=== PATIENT | female | born 1995 | race American Indian/Alaskan Native ===

== ENCOUNTER 2018-08-06 02:42 | Emergency (ER) | payer BC, MEDICAID ==
[2018-08-06] MEDS ORDERED: Metoclopramide 10 MG/2 ML SDV IVPUSH ONE (03:03)
[2018-08-06] MEDS ORDERED: HYDROmorphone 1 MG/ML Syringe IVPUSH ONE (03:04)
--- NOTE | 2018-08-06 03:05 | EDM.PDOC ---
ED HPI GENERAL MEDICAL PROBLEM - General Chief Complaint: Abdominal Pain Stated Complaint: BOTH SIDES HURT/HAVING TROUBLE BREATHING Time Seen by Provider: 08/06/18 02:59 Source of Information: Reports: Patient History Limitations: Reports: No Limitations - History of Present Illness INITIAL COMMENTS - FREE TEXT/NARRATIVE: 23-year-old female of [place] ancestry presents to the ED with bilateral abdominal pain that seems to be moving around currently it's mostly in the epigastrium. Pain awoke her from sleep. She did have associated nausea and vomiting 1 related to the intensity of the pain. was bilious. She doesn't believe she got into any bad food. She's had no fever or chills. No diarrhea so far. No previous abdominal surgery. Sure about possibility of . She is 6 para 5. Appears to be a strong colicky component to her pain at times as well but does radiate slightly up into the chest. Deep breathing makes the pain worse. She has no history of gallstones. Onset: Today Onset Date: 08/06/18 Onset Time: 01:00 Duration: Hour(s): Location: Reports: Abdomen (Mostly epigastrium but pain is felt across both upper quadrants of the abdomen. No radiation to the back.) Quality: Reports: Sharp, Stabbing, Other Severity: Moderate (Constant pressure in epigastrium with occasional colicky component to the pain) Improves with: Reports: None Worsens with: Reports: None ( and) Context: Reports: Other (Sisters here with left upper quadrant abdominal pain as well. She she has not vomited however.). Denies: Activity, Exercise, Lifting , Sick Contact, Trauma Associated Symptoms: Reports: Loss of Appetite, Nausea/Vomiting, Shortness of Breath. Denies: Confusion, Chest Pain, Cough, cough w sputum, Diaphoresis, Fever/Chills, Headaches, Malaise, Rash, Seizure (Vomiting times one of bilious material), Syncope (Sense of shortness breath is deep breathing makes the abdominal pain worse.) Treatments ACCESS SERVICES LIBRARIAN: Reports: Other (see below) (None.) Bilateral Upper Abdomen Pain Score (Numeric/FACES): 8 - Related Data Allergies Allergy/AdvReac Type Severity Reaction Status Date / Time Penicillins Allergy Hives Verified 08/06/18 02:50 Home Meds: Home Meds Ondansetron [Zofran] 4 mg BUCCAL Q6H PRN #5 tab 08/06/18 [Rx] Past Medical History : 6 Para: 5 - Past Surgical History Female Surgical History: Reports: D&C (After a miscarriage.) Social & Family History - Tobacco Use Smoking Status *Q: Current Every Day Smoker Years of Tobacco use: 5 Packs/Tins Daily: 0.1 - Recreational Drug Use Recreational Drug Use: No - Living Situation & Occupation Living situation: Reports: Single Occupation: Student ED ROS GENERAL - Review of Systems Review Of Systems: See Below Constitutional: Reports: Decreased Appetite. Denies: Fever, Chills, Malaise, Weakness, Fatigue, Weight Loss HEENT: Reports: No Symptoms Respiratory: Reports: Shortness of Breath. Denies: Wheezing, Pleuritic Chest Pain, Cough Cardiovascular: Denies: Chest Pain, Blood Pressure Problem, Claudication, Dyspnea on Exertion, Edema, Lightheadedness, Orthopnea Endocrine: Reports: No Symptoms GI/Abdominal: Reports: Abdominal Pain, Decreased Appetite, Nausea, Vomiting ( Vomiting times one of bilious material). Denies: Anorexia (See history of present illness), Constipation ( about 2 hours ago), Diarrhea, Difficulty Swallowing, Distension, Flatus, Hematemesis, Hematochezia, Melena : Reports: No Symptoms, Other (She is not sure when her last normal menstrual period was.) Musculoskeletal: Reports: No Symptoms Skin: Reports: No Symptoms Neurological: Reports: No Symptoms Psychiatric: Reports: No Symptoms Hematologic/Lymphatic: Reports: No Symptoms ED EXAM, GI/ABD - Physical Exam Exam: See Below Exam Limited By: No Limitations General Appearance: Alert, WD/WN, No Apparent Distress, Other (Vital signs show she is afebrile pulse of 71 with respect rate of 16. Sats are 100% room air) Eyes: Bilateral: Normal Appearance (No scleral icterus.) Throat/Mouth: Normal Inspection, Normal Lips, Normal Oropharynx, Other Head: Atraumatic, Normocephalic (Mouth is moist) Neck: Normal Inspection, Supple, Non-Tender, Full Range of Motion. No: Lymphadenopathy (L), Lymphadenopathy (R) Respiratory/Chest: No Respiratory Distress, Lungs Clear, Normal Breath Sounds, No Accessory Muscle Use Cardiovascular: Normal Peripheral Pulses, Regular Rate, Rhythm, No Edema, No Gallop, No Murmur, No Rub GI/Abdominal Exam: Normal Bowel Sounds, Soft, No Organomegaly, No Abnormal Bruit , No Mass, Pelvis Stable, Tender (This is mostly along the right costal margin in the midline and epigastrium.), Abnormal Bowel Sounds. No: Guarding, Rigid, Rebound Back Exam: Normal Inspection, Full Range of Motion. No: CVA Tenderness (L), CVA Tenderness (R) Extremities: Normal Inspection, Normal Range of Motion, Non-Tender, No Pedal Edema Neurological: Alert, Oriented, CN II-XII Intact, Normal Cognition Psychiatric: Normal Affect, Normal Mood Skin Exam: Warm, Dry, Intact, Normal Color, No Rash Course - Vital Signs Last Recorded V/S: Last Vital Signs Temp 36.2 C 08/06/18 02:50 Pulse 71 08/06/18 02:50 Resp 16 08/06/18 02:50 BP 127/86 08/06/18 02:50 Pulse Ox 100 08/06/18 02:50 - Orders/Labs/Meds Orders: Active Orders 24 hr Category Date Time Status Abdomen 1V Flat [CR] Stat Exams 08/06/18 04:12 Taken Labs: Laboratory Tests 08/06/18 08/06/18 08/06/18 Range/Units 03:10 03:10 03:10 WBC 5.88 (3.98-10.04) K/mm3 RBC 4.35 (3.98-5.22) M/mm3 Hgb 10.9 L (11.2-15.7) gm/L Hct 34.6 (34.1-44.9) % MCV 79.5 (79.4-94.8) fl MCH 25.1 L (25.6-32.2) pg MCHC 31.5 L (32.2-35.5) g/dl RDW Std Deviation 41.6 (36.4-46.3) fL Plt Count 272 (182-369) K/mm3 MPV 9.8 (9.4-12.3) fl Neutrophils % (Manual) 48 (40-60) % Band Neutrophils % 0 (0-10) % Lymphocytes % (Manual) 41 H (20-40) % Atypical Lymphs % 0 % Monocytes % (Manual) 9 (2-10) % Eosinophils % (Manual) 1 (0.7-5.8) % Basophils % (Manual) 1 (0.1-1.2) Platelet Estimate Adequate Plt Morphology Comment Normal Hypochromasia 1+ slight RBC Morph Comment Not Reportable Sodium 141 (136-145) mEq/L Potassium 3.7 (3.5-5.1) mEq/L Chloride 107 (98-107) mEq/L Carbon Dioxide 25 (21-32) mEq/L Anion Gap 12.7 (5-15) BUN 17 (7-18) mg/dL Creatinine 1.0 (0.55-1.02) mg/dL Est Cr Clr Drug Dosing 75.55 mL/min Estimated GFR (MDRD) > 60 (>60) mL/min BUN/Creatinine Ratio 17.0 (14-18) Glucose 101 (74-106) mg/dL Calcium 8.5 (8.5-10.1) mg/dL Total Bilirubin 0.3 (0.2-1.0) mg/dL AST 18 (15-37) U/L ALT 34 (14-59) U/L Alkaline Phosphatase 68 (46-116) U/L C-Reactive Protein 0.6 (<1.0) mg/dL Total Protein 7.3 (6.4-8.2) g/dl Albumin 3.6 (3.4-5.0) g/dl Globulin 3.7 gm/dL Albumin/Globulin Ratio 1.0 (1-2) Amylase 17 L (25-115) U/L HCG, Qual Negative (NEGATIVE) Urine Color (Yellow) Urine Appearance (Clear) Urine pH (5.0-8.0) Ur Specific [place] (1.005-1.030) Urine Protein (Negative) Urine Glucose (UA) (Negative) Urine Ketones (Negative) Urine Occult Blood (Negative) Urine Nitrite (Negative) Urine Bilirubin (Negative) Urine Urobilinogen (0.2-1.0) Ur Leukocyte Esterase (Negative) Urine RBC (0-5) /hpf Urine WBC (0-5) /hpf Ur Epithelial Cells (0-5) /hpf Urine Bacteria (FEW) /hpf Urine Mucus (FEW) /hpf 08/06/18 Range/Units 04:12 WBC (3.98-10.04) K/mm3 RBC (3.98-5.22) M/mm3 Hgb (11.2-15.7) gm/L Hct (34.1-44.9) % MCV (79.4-94.8) fl MCH (25.6-32.2) pg MCHC (32.2-35.5) g/dl RDW Std Deviation (36.4-46.3) fL Plt Count (182-369) K/mm3 MPV (9.4-12.3) fl Neutrophils % (Manual) (40-60) % Band Neutrophils % (0-10) % Lymphocytes % (Manual) (20-40) % Atypical Lymphs % % Monocytes % (Manual) (2-10) % Eosinophils % (Manual) (0.7-5.8) % Basophils % (Manual) (0.1-1.2) Platelet Estimate Plt Morphology Comment Hypochromasia RBC Morph Comment Sodium (136-145) mEq/L Potassium (3.5-5.1) mEq/L Chloride (98-107) mEq/L Carbon Dioxide (21-32) mEq/L Anion Gap (5-15) BUN (7-18) mg/dL Creatinine (0.55-1.02) mg/dL Est Cr Clr Drug Dosing mL/min Estimated GFR (MDRD) (>60) mL/min BUN/Creatinine Ratio (14-18) Glucose (74-106) mg/dL Calcium (8.5-10.1) mg/dL Total Bilirubin (0.2-1.0) mg/dL AST (15-37) U/L ALT (14-59) U/L Alkaline Phosphatase (46-116) U/L C-Reactive Protein (<1.0) mg/dL Total Protein (6.4-8.2) g/dl Albumin (3.4-5.0) g/dl Globulin gm/dL Albumin/Globulin Ratio (1-2) Amylase (25-115) U/L HCG, Qual (NEGATIVE) Urine Color Yellow (Yellow) Urine Appearance Cloudy H (Clear) Urine pH 7.0 (5.0-8.0) Ur Specific [place] 1.025 (1.005-1.030) Urine Protein 1+ H (Negative) Urine Glucose (UA) Negative (Negative) Urine Ketones Trace H (Negative) Urine Occult Blood Negative (Negative) Urine Nitrite Positive H (Negative) Urine Bilirubin Negative (Negative) Urine Urobilinogen 1.0 (0.2-1.0) Ur Leukocyte Esterase Negative (Negative) Urine RBC 0-5 (0-5) /hpf Urine WBC 0-5 (0-5) /hpf Ur Epithelial Cells 0-5 (0-5) /hpf Urine Bacteria Many H (FEW) /hpf Urine Mucus Few (FEW) /hpf Meds: Medications Discontinued Medications Generic Name Dose Route Start Last Admin Trade Name López PRN Reason Stop Dose Admin Hydromorphone HCl 0.5 mg 08/06/18 03:04 08/06/18 03:13 Dilaudid IVPUSH 08/06/18 03:05 0.5 mg ONETIME ONE Administration Sodium Chloride 1,000 mls @ 500 mls/hr 08/06/18 03:15 08/06/18 03:12 Normal Saline IV 500 mls/hr ASDIRECTED NINA Administration Ketorolac Tromethamine 30 mg 08/06/18 05:00 08/06/18 05:06 Toradol IVPUSH 30 mg ONETIME NINA Administration Magnesium Citrate 180 ml 08/06/18 04:56 08/06/18 05:06 Citrate Of Magnesia PO 08/06/18 04:57 180 ml ONETIME ONE Administration Metoclopramide HCl 7.5 mg 08/06/18 03:03 08/06/18 03:12 Reglan IVPUSH 08/06/18 03:04 7.5 mg ONETIME ONE Administration - Radiology Interpretation Free Text/Narrative:: 23-year-old female presents to the ED with acute onset of diffuse upper abdominal pain under the costal margins bilaterally. Pain currently is mostly in the epigastrium. Associated nausea and vomiting 1 due to the intensity of the pain. Pain woke her from sleep about 2 hours ago. She last ate about 1830 hrs. last night. Examination shows bowel sounds to be normal. Pain in the epigastrium on palpation along the right costal margin with no true positive Caldera sign. Benign abdomen otherwise. No previous abdominal surgery. Of note her sister is in the department the same time with left upper quadrant abdominal pain and nausea with no vomiting or diarrhea. Plan normal saline at 500 mils per hour. Given Dilaudid 0.5 mg IV for pain relief and Reglan 7.5 mg IV. Labs will include a beta hCG CBC CMP and amylase. Will hold off on KUB of the abdomen until we know for sure her status. - Re-Assessments/Exams Free Text/Narrative Re-Assessment/Exam: 08/06/18 03:41 bedside ultrasound performed by me does not reveal any evidence of gallstones. Gallbladder was well well visualized. 08/06/18 04:14 White count is 5.88 with 48% neutrophils and 41% lymphocytes suggesting a viral infection. Hemoglobin is low at 10.9 with hematocrit of 34.6. MCV is 79.5 suggesting mild iron deficiency. Platelet count is normal 272, 000. Sodium 141 with a potassium of 3.7. Chloride 107 with a bicarbonate 25. Anion gap is 12.7. BUN is 17 with a creatinine of 1.0. GFR is greater than 60. Glucose is 101. Calcium 8.5 with a normal bilirubin 0.3. Liver function is otherwise normal. C-reactive protein is 0.6. Total protein is 7.3 with an albumin fraction 3.6. Amylase is 17 hCG qualitative serum was negative. Labs do not shed any light on etiology of abdominal pain appears to be viral gastroenteritis. She will now have a KUB performed. 08/06/18 04:57 KUB reveals a stool plug in the right upper: Near the hepatic flexure. There is a large amount of air distending small bowel and colon due to the plug. She will therefore be treated with magnesium citrate 6 ounces by mouth with 5-6 ounces of juice once. Departure - Departure Time of Disposition: 04:57 Disposition: Home, Self-Care 01 Condition: Fair Clinical Impression: Constipation by delayed colonic transit Abdominal pain Qualifiers: Abdominal location: epigastric Qualified Code(s): R10.13 - Epigastric pain - Discharge Information *PRESCRIPTION DRUG MONITORING PROGRAM REVIEWED*: Not Applicable *COPY OF PRESCRIPTION DRUG MONITORING REPORT IN PATIENT BRIANNA: Not Applicable Prescriptions: Ondansetron [Zofran] 4 mg BUCCAL Q6H PRN #5 tab PRN Reason: nausea or vomiting Instructions: Abdominal Pain, Adult, [id number] Referrals: PCP,None [Primary Care Provider] - Forms: ED Department Discharge Additional Instructions: Evaluation the emergency room this morning in regards to acute onset of bilateral upper abdominal pain and then mostly epigastric pressure discomfort that did cause unit of nausea and vomiting 1. No associated fever chills. Lab work proved to be completely normal. This includes a negative test. X- ray of the abdomen shows a stool bolus in the right upper "quadrant of the colon which is causing backup of air through your small bowel and parts of your large bowel which are causing your pain. Treatment was magnesium citrate 6 ounces given in the ED. This will take 1-2 hours to work and make her bowels work about 3 or 4 times this morning and get rid of the pain. You were treated with intravenous fluids while in the ED as well as pain medication and intravenous medicine for nausea relief. If nausea persists then you can fill prescription for Zofran 4 mg that can be taken under the tongue every 6 hours as needed for relief of nausea or vomiting. I suspect she will need this once her bowel was cleansed. - My Orders Last 24 Hours: My Active Orders 08/06/18 04:12 Abdomen 1V Flat [CR] Stat - Assessment/Plan Last 24 Hours: My Active Orders 08/06/18 04:12 Abdomen 1V Flat [CR] Stat
[2018-08-06] MEDS ORDERED: Sodium Chloride 0.9% 1,000 ML IV SCH (03:15)
[2018-08-06] MEDS ORDERED: Magnesium Citrate Solution 296 ML Bottle PO ONE (04:56)
[2018-08-06] MEDS ORDERED: Ketorolac 30 MG/ML SDV IVPUSH SCH (05:00)
--- NOTE | 2018-08-06 08:17 | CR ---
Abdomen: Supine view of the abdomen was obtained. Comparison: No prior study. Bowel gas pattern is normal. No abnormal calcifications or soft tissue abnormality is seen. Bony structures are unremarkable. Impression: 1. Nothing acute seen on supine abdominal x-ray. Diagnostic code #1
== END 2018-08-06 05:14 | disposition home or self-care (01) ==
LOC: JD.ED 02:42
DX: K59.01 Slow transit constipation (principal); F17.210 Nicotine dependence, cigarettes, uncomplicated; Z88.0 Allergy status to penicillin
CPT/HCPCS: 36415; 74018; 80053; 81001; 82150; 84703; 85007; 85027; 86140; 96361; 96374; 96375; 99285; A9270; J1170; J1885; J2765; J7040; 99284

== ENCOUNTER 2018-08-21 10:56 | Emergency (ER) | payer MEDICAID ==
[2018-08-21] MEDS ORDERED: Sodium Chloride 0.9% 10 ML Syringe FLUSH PRN (11:55)
[2018-08-21] MEDS ORDERED: Ondansetron 4 MG/2 ML SDV IVPUSH ONE (11:55)
[2018-08-21] MEDS ORDERED: Sodium Chloride 0.9% 1,000 ML IV STA (11:55)
[2018-08-21] MEDS ORDERED: HYDROmorphone 1 MG/ML Syringe IVPUSH ONE (11:57)
--- NOTE | 2018-08-21 12:09 | EDM.PDOC ---
<Clinton Richardson - Last Filed: 08/21/18 11:43> ED HPI GENERAL MEDICAL PROBLEM - General Chief Complaint: Abdominal Pain Stated Complaint: ABDOMINAL PAIN/VOMITING Time Seen by Provider: 08/21/18 11:12 Source of Information: Reports: Patient History Limitations: Reports: No Limitations - History of Present Illness INITIAL COMMENTS - FREE TEXT/NARRATIVE: Previously healthy 23 year old female presents for post prandial epigastric abdominal pain with associated nausea and bilious vomiting that started this morning after consuming eggs and ice cream. She also states that she has noticed blood in her stool last night and that she has chronic hard stools which is painful with and a few minutes after defecation. She has past small amount of hard stool this morning again with blood. She is sexually active with one partner this past year and does not use protection. She denies history of STI. Her last menstrual period was last night and states her periods are fairly regular with normal flow.Pt denies fever, chills, shortness of breath, chest pain, palpitations, dysuria, urinary frequency. Onset: Today, Sudden (a few minutes after eating eggs and ice cream) Onset Date: 08/21/18 (this morning) Duration: Intermittent Location: Reports: Abdomen Quality: Reports: Burning, Pressure Severity: Moderate Improves with: Reports: Other (improved after vomiting) Worsens with: Reports: None Context: Reports: Other (Post prandial) Associated Symptoms: Reports: Nausea/Vomiting (vomiting x 2) Upper Abdominal Pain Score (Numeric/FACES): 10 - Related Data Allergies Allergy/AdvReac Type Severity Reaction Status Date / Time Penicillins Allergy Hives Verified 08/21/18 11:14 Home Meds: Home Meds Hydrocodone/Acetaminophen [Hydrocodon-Acetaminophen 5-325] 1 - 2 each PO Q6HR PRN #10 tablet 08/21/18 [Rx] Past Medical History - Past Surgical History Female Surgical History: Reports: D&C Social & Family History - Tobacco Use Smoking Status *Q: Never Smoker - Caffeine Use Caffeine Use: Reports: None - Recreational Drug Use Recreational Drug Use: No - Living Situation & Occupation Living situation: Reports: Single Occupation: Student ED ROS GENERAL - Review of Systems Review Of Systems: See Below Constitutional: Reports: No Symptoms. Denies: Fever, Chills HEENT: Reports: No Symptoms Respiratory: Reports: No Symptoms. Denies: Shortness of Breath, Cough Cardiovascular: Reports: No Symptoms. Denies: Chest Pain, Edema, Lightheadedness, Palpitations Endocrine: Reports: No Symptoms. Denies: Polydypsia, Polyuria GI/Abdominal: Reports: Abdominal Pain (see HPI), Bloody Stool (First noticed last night), Constipation (Chronic.), Nausea, Vomiting (x2 this morning), Other (Painful defication.). Denies: Diarrhea, Flatus, Melena : Reports: No Symptoms, Other (Pt sexually active with 1 partner. Does not use protection. No STI history. Currently menstrating, started last night with normal flow. Periods are described as regular). Denies: Dysuria, Flank Pain, Frequency, Hematuria, Irregular Menses, Urgency Musculoskeletal: Reports: No Symptoms. Denies: Back Pain Skin: Reports: No Symptoms. Denies: Cyanosis, Jaundice Neurological: Reports: No Symptoms. Denies: Dizziness, Headache, Weakness Psychiatric: Reports: No Symptoms Hematologic/Lymphatic: Reports: No Symptoms Immunologic: Reports: No Symptoms ED EXAM, GI/ABD - Physical Exam Exam: See Below Exam Limited By: No Limitations General Appearance: Alert, WD/WN, No Apparent Distress Eyes: Bilateral: Normal Appearance, EOMI Ears: Normal External Exam, Normal Canal, Hearing Grossly Normal, Normal TMs Nose: Normal Inspection, Normal Mucosa, No Blood Throat/Mouth: Normal Inspection, Normal Lips, Normal Teeth, Normal Gums, Normal Oropharynx, Normal Voice, No Airway Compromise Head: Atraumatic, Normocephalic Neck: Normal Inspection, Supple, Non-Tender, Full Range of Motion Respiratory/Chest: No Respiratory Distress, Lungs Clear, Normal Breath Sounds, No Accessory Muscle Use, Chest Non-Tender Cardiovascular: Normal Peripheral Pulses, Regular Rate, Rhythm, No Edema, No Gallop, No JVD, No Murmur, No Rub GI/Abdominal Exam: Normal Bowel Sounds, Soft, No Organomegaly, No Distention, No Mass, Tender (Mild tenderness to epigastric and LLQ. ) (Female) Exam: Deferred Back Exam: Normal Inspection, Full Range of Motion Extremities: Normal Inspection, Normal Range of Motion, Non-Tender, Normal Capillary Refill, No Pedal Edema Neurological: Alert, Oriented, CN II-XII Intact, Normal Cognition, Normal Gait, Normal Reflexes, No Motor/Sensory Deficits Psychiatric: Normal Affect, Normal Mood Skin Exam: Warm, Dry, Intact, Normal Color, No Rash Lymphatic: No Adenopathy Course - Vital Signs Last Recorded V/S: Last Vital Signs Temp 97.0 F 08/21/18 11:12 Pulse 64 08/21/18 11:12 Resp 16 08/21/18 11:12 BP 131/74 08/21/18 11:12 Pulse Ox 100 08/21/18 11:12 - Orders/Labs/Meds Orders: Active Orders 24 hr Category Date Time Status Peripheral IV Care [RC] . DIRECTED Care 08/21/18 11:56 Active Sodium Chloride 0.9% [Saline Flush] Med 08/21/18 11:55 Active 10 ml FLUSH ASDIRECTED PRN ED Antiemetic Medication Reflex [OM.PC] Stat Oth 08/21/18 11:56 Ordered Peripheral IV Insertion Adult [OM.PC] Stat Oth 08/21/18 11:55 Ordered Medication Orders Sodium Chloride (Saline Flush) 10 ml FLUSH ASDIRECTED PRN PRN Reason: Keep Vein Open Last Admin: 08/21/18 12:14 Dose: 10 ml Labs: Laboratory Tests 08/21/18 08/21/18 08/21/18 Range/Units 11:20 11:20 11:20 WBC 6.50 (3.98-10.04) K/mm3 RBC 4.55 (3.98-5.22) M/mm3 Hgb 11.0 L (11.2-15.7) gm/L Hct 35.6 (34.1-44.9) % MCV 78.2 L (79.4-94.8) fl MCH 24.2 L (25.6-32.2) pg MCHC 30.9 L (32.2-35.5) g/dl RDW Std Deviation 39.2 (36.4-46.3) fL Plt Count 299 (182-369) K/mm3 MPV 10.4 (9.4-12.3) fl Neut % (Auto) 63.2 (34.0-71.1) % Lymph % (Auto) 28.5 (19.3-51.7) % [place] % (Auto) 5.8 (4.7-12.5) % Eos % (Auto) 2.0 (0.7-5.8) Baso % (Auto) 0.3 (0.1-1.2) % Neut # (Auto) 4.11 (1.56-6.13) K/mm3 Lymph # (Auto) 1.85 (1.18-3.74) K/mm3 [place] # (Auto) 0.38 H (0.24-0.36) K/mm3 Eos # (Auto) 0.13 (0.04-0.36) K/mm3 Baso # (Auto) 0.02 (0.01-0.08) K/mm3 Sodium 142 (136-145) mEq/L Potassium 3.9 (3.5-5.1) mEq/L Chloride 108 H (98-107) mEq/L Carbon Dioxide 25 (21-32) mEq/L Anion Gap 12.9 (5-15) BUN 12 (7-18) mg/dL Creatinine 0.9 (0.55-1.02) mg/dL Est Cr Clr Drug Dosing 101.60 mL/min Estimated GFR (MDRD) > 60 (>60) mL/min BUN/Creatinine Ratio 13.3 L (14-18) Glucose 100 (74-106) mg/dL Calcium 8.7 (8.5-10.1) mg/dL Total Bilirubin 0.3 (0.2-1.0) mg/dL AST 20 (15-37) U/L ALT 30 (14-59) U/L Alkaline Phosphatase 70 (46-116) U/L Total Protein 7.7 (6.4-8.2) g/dl Albumin 3.8 (3.4-5.0) g/dl Globulin 3.9 gm/dL Albumin/Globulin Ratio 1.0 (1-2) Lipase 159 (73-393) U/L HCG, Qual Negative (NEGATIVE) Urine Color (Yellow) Urine Appearance (Clear) Urine pH (5.0-8.0) Ur Specific [place] (1.005-1.030) Urine Protein (Negative) Urine Glucose (UA) (Negative) Urine Ketones (Negative) Urine Occult Blood (Negative) Urine Nitrite (Negative) Urine Bilirubin (Negative) Urine Urobilinogen (0.2-1.0) Ur Leukocyte Esterase (Negative) Urine RBC (0-5) /hpf Urine WBC (0-5) /hpf Ur Epithelial Cells (0-5) /hpf Ur Squamous Epith Cells (0-5) /hpf Urine Bacteria (FEW) /hpf Urine Mucus (FEW) /hpf 08/21/18 Range/Units 11:25 WBC (3.98-10.04) K/mm3 RBC (3.98-5.22) M/mm3 Hgb (11.2-15.7) gm/L Hct (34.1-44.9) % MCV (79.4-94.8) fl MCH (25.6-32.2) pg MCHC (32.2-35.5) g/dl RDW Std Deviation (36.4-46.3) fL Plt Count (182-369) K/mm3 MPV (9.4-12.3) fl Neut % (Auto) (34.0-71.1) % Lymph % (Auto) (19.3-51.7) % [place] % (Auto) (4.7-12.5) % Eos % (Auto) (0.7-5.8) Baso % (Auto) (0.1-1.2) % Neut # (Auto) (1.56-6.13) K/mm3 Lymph # (Auto) (1.18-3.74) K/mm3 [place] # (Auto) (0.24-0.36) K/mm3 Eos # (Auto) (0.04-0.36) K/mm3 Baso # (Auto) (0.01-0.08) K/mm3 Sodium (136-145) mEq/L Potassium (3.5-5.1) mEq/L Chloride (98-107) mEq/L Carbon Dioxide (21-32) mEq/L Anion Gap (5-15) BUN (7-18) mg/dL Creatinine (0.55-1.02) mg/dL Est Cr Clr Drug Dosing mL/min Estimated GFR (MDRD) (>60) mL/min BUN/Creatinine Ratio (14-18) Glucose (74-106) mg/dL Calcium (8.5-10.1) mg/dL Total Bilirubin (0.2-1.0) mg/dL AST (15-37) U/L ALT (14-59) U/L Alkaline Phosphatase (46-116) U/L Total Protein (6.4-8.2) g/dl Albumin (3.4-5.0) g/dl Globulin gm/dL Albumin/Globulin Ratio (1-2) Lipase (73-393) U/L HCG, Qual (NEGATIVE) Urine Color Yellow (Yellow) Urine Appearance Slt cloudy H (Clear) Urine pH 5.5 (5.0-8.0) Ur Specific [place] 1.025 (1.005-1.030) Urine Protein Negative (Negative) Urine Glucose (UA) Negative (Negative) Urine Ketones Negative (Negative) Urine Occult Blood 3+ H (Negative) Urine Nitrite Negative (Negative) Urine Bilirubin Negative (Negative) Urine Urobilinogen 0.2 (0.2-1.0) Ur Leukocyte Esterase 2+ H (Negative) Urine RBC 10-20 H (0-5) /hpf Urine WBC 10-20 H (0-5) /hpf Ur Epithelial Cells Not seen (0-5) /hpf Ur Squamous Epith Cells 0-5 (0-5) /hpf Urine Bacteria Moderate H (FEW) /hpf Urine Mucus Few (FEW) /hpf Meds: Medications Generic Name Dose Route Start Last Admin Trade Name Freq PRN Reason Stop Dose Admin Sodium Chloride 10 ml 08/21/18 11:55 08/21/18 12:14 Saline Flush FLUSH 10 ml ASDIRECTED PRN Administration Keep Vein Open Discontinued Medications Generic Name Dose Route Start Last Admin Trade Name Freq PRN Reason Stop Dose Admin Hydromorphone HCl 0.5 mg 08/21/18 11:57 08/21/18 12:14 Dilaudid IVPUSH 08/21/18 11:58 0.5 mg ONETIME ONE Administration Sodium Chloride 1,000 mls @ 1,000 mls/hr 08/21/18 11:55 08/21/18 12:09 Normal Saline IV 08/21/18 12:54 1,000 mls/hr .BOLUS STA Administration Ondansetron HCl 4 mg 08/21/18 11:55 08/21/18 12:13 Zofran IVPUSH 08/21/18 11:56 4 mg ONETIME ONE Administration Departure - Departure Disposition: Home, Self-Care 01 Clinical Impression: Cholelithiasis Qualifiers: Cholelithiasis location: gallbladder Cholecystitis presence: without cholecystitis Biliary obstruction: without biliary obstruction Qualified Code(s) : K80.20 - Calculus of gallbladder without cholecystitis without obstruction Constipation Qualifiers: Constipation type: unspecified constipation type Qualified Code(s): K59.00 - Constipation, unspecified - Discharge Information Prescriptions: Hydrocodone/Acetaminophen [Hydrocodon-Acetaminophen 5-325] 1 - 2 each PO Q6HR PRN #10 tablet PRN Reason: Pain Referrals: PCP,None [Primary Care Provider] - Cira Ellison MD [Physician] - 2 Weeks Forms: ED Department Discharge Additional Instructions: Avoid eating fried or fatty food. Drink plenty of fluids. Take tylenol or motrin for pain. If that does not help, try the hydrocodone. Follow up with Dr Madison. Take colace daily to help with your bowel movements. - My Orders Last 24 Hours: My Active Orders 08/21/18 11:55 Sodium Chloride 0.9% [Saline Flush] 10 ml FLUSH ASDIRECTED PRN Peripheral IV Insertion Adult [OM.PC] Stat 08/21/18 11:56 Peripheral IV Care [RC] . DIRECTED ED Antiemetic Medication Reflex [OM.PC] Stat - Assessment/Plan Last 24 Hours: My Active Orders 08/21/18 11:55 Sodium Chloride 0.9% [Saline Flush] 10 ml FLUSH ASDIRECTED PRN Peripheral IV Insertion Adult [OM.PC] Stat 08/21/18 11:56 Peripheral IV Care [RC] . DIRECTED ED Antiemetic Medication Reflex [OM.PC] Stat <Nelson Huff - Last Filed: 08/21/18 13:43> Course - Re-Assessments/Exams Free Text/Narrative Re-Assessment/Exam: 08/21/18 13:28 I examined the patient myself and I agree with Galdino's assessment and plan. I ordered an IV NS 1L bolus, zofran 4mg IV, dilaudid 0.5mg IV, labs, UA and an US of her gallbladder. Her CBC and CMP look good. Her HCG is negative. Her UA has some blood but no UTI. Her US shows at lest 3 gallstones without gallbladder wall thickening or biliary duct dilatation. Incompletely seen pancreas. Other portions of the right upper quadrant abdominal US are unremarkable. She feels better. I will give her a few pain pills and I will have her follow up with our general surgeon Dr Madison. She did not want a rectal exam at this time. I will have her take a stool softener. Departure - Departure Time of Disposition: 13:40 Condition: Good - Discharge Information *PRESCRIPTION DRUG MONITORING PROGRAM REVIEWED*: No *COPY OF PRESCRIPTION DRUG MONITORING REPORT IN PATIENT BRIANNA: No
--- NOTE | 2018-08-21 13:14 | US ---
Limited abdominal ultrasound: Multiple real-time images of the upper right abdomen were obtained. Comparison: No prior abdominal ultrasound. Liver shows no focal abnormality. Gallbladder shows at least 3 gallstones. No gallbladder wall thickening or biliary duct dilatation is seen. Right kidney shows no hydronephrosis or mass and has a length of 9.9 cm. Pancreas is incompletely seen. Visualized portions of the pancreas are within normal limits. Impression: 1. At least 3 gallstones without gallbladder wall thickening or biliary duct dilatation. 2. Incompletely seen pancreas. Other portions of the right upper quadrant abdominal ultrasound are unremarkable. Diagnostic code #3
== END 2018-08-21 13:57 | disposition home or self-care (01) ==
LOC: JD.ED 10:56
DX: K80.20 Calculus of gallbladder without cholecystitis without obstruction (principal); K59.00 Constipation, unspecified; Z88.0 Allergy status to penicillin
CPT/HCPCS: 36415; 76705; 80053; 81001; 83690; 84703; 85025; 87086; 87088; 87186; 96361; 96374; 96375; 99284; J1170; J2405; J7040

== ENCOUNTER 2018-09-17 22:49 | Emergency (ER) | payer MEDICAID ==
[2018-09-17] MEDS ORDERED: Sodium Chloride 0.9% 1,000 ML IV STA (23:24)
[2018-09-17] MEDS ORDERED: Ondansetron 4 MG/2 ML SDV IVPUSH ONE (23:24)
[2018-09-17] MEDS ORDERED: Sodium Chloride 0.9% 10 ML Syringe FLUSH PRN (23:24)
[2018-09-17] MEDS ORDERED: HYDROmorphone 1 MG/ML Syringe IVPUSH ONE (23:25)
[2018-09-18] MEDS ORDERED: HYDROmorphone 1 MG/ML Syringe IVPUSH ONE (00:26)
--- NOTE | 2018-09-18 00:36 | EDM.PDOC ---
ED HPI GENERAL MEDICAL PROBLEM - General Chief Complaint: Abdominal Pain Stated Complaint: LOWER ABDOMINAL PAIN Time Seen by Provider: 09/17/18 23:00 Source of Information: Reports: Patient History Limitations: Reports: No Limitations - History of Present Illness INITIAL COMMENTS - FREE TEXT/NARRATIVE: The patient presents with RUQ abdominal pain. She was seen here about 2 weeks ago for the same. She ended up having gallstones. She was going to follow up with the general surgeon Dr Cabral but she could not make the appointment. She still has pain to the RUQ. She gets the pain after eating. She has some nausea. She has no fever, chills, cough, congestion, runny nose, dysuria or diarrhea. Onset: Gradual Duration: Week(s): Location: Reports: Abdomen Quality: Reports: Sharp Severity: Severe Improves with: Reports: None Worsens with: Reports: None Associated Symptoms: Reports: Nausea/Vomiting. Denies: Chest Pain, Cough, Fever /Chills, Headaches, Shortness of Breath Bilateral Upper Abdomen Pain Score (Numeric/FACES): 10 - Related Data Allergies Allergy/AdvReac Type Severity Reaction Status Date / Time Penicillins Allergy Hives Verified 09/17/18 22:55 Home Meds: Home Meds Hydrocodone/Acetaminophen [Hydrocodon-Acetaminophen 5-325] 1 - 2 each PO Q6HR PRN #10 tablet 08/21/18 [Rx] Hydrocodone/Acetaminophen [Hydrocodon-Acetaminophen 5-325] 1 - 2 each PO Q6HR PRN #20 tablet 09/18/18 [Rx] Past Medical History - Past Health History Medical/Surgical History: Denies Medical/Surgical History - Past Surgical History Female Surgical History: Reports: D&C Social & Family History - Tobacco Use Smoking Status *Q: Current Every Day Smoker Years of Tobacco use: 5 Packs/Tins Daily: 0.1 Used Tobacco, but Quit: No Second Hand Smoke Exposure: No - Caffeine Use Caffeine Use: Reports: None - Recreational Drug Use Recreational Drug Use: No - Living Situation & Occupation Living situation: Reports: Single Occupation: Student ED ROS GENERAL - Review of Systems Review Of Systems: See Below Constitutional: Reports: No Symptoms HEENT: Reports: No Symptoms Respiratory: Reports: No Symptoms Cardiovascular: Reports: No Symptoms Endocrine: Reports: No Symptoms GI/Abdominal: Reports: Abdominal Pain, Nausea, Vomiting. Denies: Diarrhea : Reports: No Symptoms Musculoskeletal: Reports: No Symptoms ED EXAM, GI/ABD - Physical Exam Exam: See Below Exam Limited By: No Limitations General Appearance: Alert, No Apparent Distress Ears: Normal External Exam Nose: Normal Inspection Head: Atraumatic, Normocephalic Neck: Normal Inspection Respiratory/Chest: No Respiratory Distress, Lungs Clear, Normal Breath Sounds Cardiovascular: Regular Rate, Rhythm, No Edema, No Murmur GI/Abdominal Exam: Soft, No Organomegaly, No Mass, Tender (Moderate tenderness to the RUQ) Course - Vital Signs Last Recorded V/S: Last Vital Signs Temp 98.1 F 09/17/18 22:56 Pulse 61 09/17/18 22:56 Resp 20 09/17/18 22:56 BP 126/73 09/17/18 22:56 Pulse Ox 100 09/17/18 22:56 - Orders/Labs/Meds Orders: Active Orders 24 hr Category Date Time Status Peripheral IV Care [RC] . DIRECTED Care 09/17/18 23:24 Active Sodium Chloride 0.9% [Saline Flush] Med 09/17/18 23:24 Active 10 ml FLUSH ASDIRECTED PRN ED Antiemetic Medication Reflex [OM.PC] Stat Oth 09/17/18 23:25 Ordered Peripheral IV Insertion Adult [OM.PC] Stat Oth 09/17/18 23:24 Ordered Medication Orders Sodium Chloride (Saline Flush) 10 ml FLUSH ASDIRECTED PRN PRN Reason: Keep Vein Open Last Admin: 09/17/18 23:41 Dose: 10 ml Labs: Laboratory Tests 09/17/18 09/17/18 09/17/18 Range/Units 23:30 23:30 23:30 WBC 7.19 (3.98-10.04) K/mm3 RBC 4.56 (3.98-5.22) M/mm3 Hgb 11.0 L (11.2-15.7) gm/L Hct 35.5 (34.1-44.9) % MCV 77.9 L (79.4-94.8) fl MCH 24.1 L (25.6-32.2) pg MCHC 31.0 L (32.2-35.5) g/dl RDW Std Deviation 40.8 (36.4-46.3) fL Plt Count 258 (182-369) K/mm3 MPV 10.2 (9.4-12.3) fl Neut % (Auto) 52.9 (34.0-71.1) % Lymph % (Auto) 38.0 (19.3-51.7) % [place] % (Auto) 7.2 (4.7-12.5) % Eos % (Auto) 1.5 (0.7-5.8) Baso % (Auto) 0.3 (0.1-1.2) % Neut # (Auto) 3.80 (1.56-6.13) K/mm3 Lymph # (Auto) 2.73 (1.18-3.74) K/mm3 [place] # (Auto) 0.52 H (0.24-0.36) K/mm3 Eos # (Auto) 0.11 (0.04-0.36) K/mm3 Baso # (Auto) 0.02 (0.01-0.08) K/mm3 Sodium 139 (136-145) mEq/L Potassium 4.0 (3.5-5.1) mEq/L Chloride 106 (98-107) mEq/L Carbon Dioxide 25 (21-32) mEq/L Anion Gap 12.0 (5-15) BUN 14 (7-18) mg/dL Creatinine 0.8 (0.55-1.02) mg/dL Est Cr Clr Drug Dosing 94.44 mL/min Estimated GFR (MDRD) > 60 (>60) mL/min BUN/Creatinine Ratio 17.5 (14-18) Glucose 109 H (74-106) mg/dL Calcium 8.7 (8.5-10.1) mg/dL Total Bilirubin 0.3 (0.2-1.0) mg/dL AST 12 L (15-37) U/L ALT 27 (14-59) U/L Alkaline Phosphatase 65 (46-116) U/L Total Protein 7.2 (6.4-8.2) g/dl Albumin 3.6 (3.4-5.0) g/dl Globulin 3.6 gm/dL Albumin/Globulin Ratio 1.0 (1-2) Lipase 156 (73-393) U/L HCG, Qual Negative (NEGATIVE) Urine Color (Yellow) Urine Appearance (Clear) Urine pH (5.0-8.0) Ur Specific [place] (1.005-1.030) Urine Protein (Negative) Urine Glucose (UA) (Negative) Urine Ketones (Negative) Urine Occult Blood (Negative) Urine Nitrite (Negative) Urine Bilirubin (Negative) Urine Urobilinogen (0.2-1.0) Ur Leukocyte Esterase (Negative) Urine RBC (0-5) /hpf Urine WBC (0-5) /hpf Ur Epithelial Cells Ur Squamous Epith Cells (0-5) /hpf Urine Bacteria (FEW) /hpf Urine Mucus (FEW) /hpf 09/18/18 Range/Units 00:20 WBC (3.98-10.04) K/mm3 RBC (3.98-5.22) M/mm3 Hgb (11.2-15.7) gm/L Hct (34.1-44.9) % MCV (79.4-94.8) fl MCH (25.6-32.2) pg MCHC (32.2-35.5) g/dl RDW Std Deviation (36.4-46.3) fL Plt Count (182-369) K/mm3 MPV (9.4-12.3) fl Neut % (Auto) (34.0-71.1) % Lymph % (Auto) (19.3-51.7) % [place] % (Auto) (4.7-12.5) % Eos % (Auto) (0.7-5.8) Baso % (Auto) (0.1-1.2) % Neut # (Auto) (1.56-6.13) K/mm3 Lymph # (Auto) (1.18-3.74) K/mm3 [place] # (Auto) (0.24-0.36) K/mm3 Eos # (Auto) (0.04-0.36) K/mm3 Baso # (Auto) (0.01-0.08) K/mm3 Sodium (136-145) mEq/L Potassium (3.5-5.1) mEq/L Chloride (98-107) mEq/L Carbon Dioxide (21-32) mEq/L Anion Gap (5-15) BUN (7-18) mg/dL Creatinine (0.55-1.02) mg/dL Est Cr Clr Drug Dosing mL/min Estimated GFR (MDRD) (>60) mL/min BUN/Creatinine Ratio (14-18) Glucose (74-106) mg/dL Calcium (8.5-10.1) mg/dL Total Bilirubin (0.2-1.0) mg/dL AST (15-37) U/L ALT (14-59) U/L Alkaline Phosphatase (46-116) U/L Total Protein (6.4-8.2) g/dl Albumin (3.4-5.0) g/dl Globulin gm/dL Albumin/Globulin Ratio (1-2) Lipase (73-393) U/L HCG, Qual (NEGATIVE) Urine Color Yellow (Yellow) Urine Appearance Clear (Clear) Urine pH 7.0 (5.0-8.0) Ur Specific [place] 1.020 (1.005-1.030) Urine Protein Negative (Negative) Urine Glucose (UA) Negative (Negative) Urine Ketones Negative (Negative) Urine Occult Blood Negative (Negative) Urine Nitrite Negative (Negative) Urine Bilirubin Negative (Negative) Urine Urobilinogen 1.0 (0.2-1.0) Ur Leukocyte Esterase Trace H (Negative) Urine RBC 0-5 (0-5) /hpf Urine WBC 5-10 H (0-5) /hpf Ur Epithelial Cells Not Reportable Ur Squamous Epith Cells 10-20 H (0-5) /hpf Urine Bacteria Moderate H (FEW) /hpf Urine Mucus Not seen (FEW) /hpf Meds: Medications Generic Name Dose Route Start Last Admin Trade Name López PRN Reason Stop Dose Admin Sodium Chloride 10 ml 09/17/18 23:24 09/17/18 23:41 Saline Flush FLUSH 10 ml ASDIRECTED PRN Administration Keep Vein Open Discontinued Medications Generic Name Dose Route Start Last Admin Trade Name López PRN Reason Stop Dose Admin Hydromorphone HCl 0.5 mg 09/17/18 23:25 09/17/18 23:39 Dilaudid IVPUSH 09/17/18 23:26 0.5 mg ONETIME ONE Administration Hydromorphone HCl 0.5 mg 09/18/18 00:26 09/18/18 00:34 Dilaudid IVPUSH 09/18/18 00:27 0.5 mg ONETIME ONE Administration Sodium Chloride 1,000 mls @ 1,000 mls/hr 09/17/18 23:24 09/17/18 23:38 Normal Saline IV 03/28/19 00:23 1,000 mls/hr .BOLUS STA Administration Ondansetron HCl 4 mg 09/17/18 23:24 09/17/18 23:39 Zofran IVPUSH 09/17/18 23:25 4 mg ONETIME ONE Administration - Re-Assessments/Exams Free Text/Narrative Re-Assessment/Exam: 09/18/18 00:36 I ordered an IV NS 1L bolus, zofran 4mg IV, dilaudid 0.5mg IV, labs, and UA. Her CBC and CMP are negative. Her HCG is negative. I am waiting for her UA results. Departure - Departure Time of Disposition: 00:50 Disposition: Home, Self-Care 01 Condition: Good Clinical Impression: Abdominal pain Qualifiers: Abdominal location: epigastric Qualified Code(s): R10.13 - Epigastric pain Cholelithiasis Qualifiers: Cholelithiasis location: gallbladder Cholecystitis presence: without cholecystitis Biliary obstruction: without biliary obstruction Qualified Code(s) : K80.20 - Calculus of gallbladder without cholecystitis without obstruction - Discharge Information *PRESCRIPTION DRUG MONITORING PROGRAM REVIEWED*: No *COPY OF PRESCRIPTION DRUG MONITORING REPORT IN PATIENT BRIANNA: No Prescriptions: Hydrocodone/Acetaminophen [Hydrocodon-Acetaminophen 5-325] 1 - 2 each PO Q6HR PRN #20 tablet PRN Reason: Pain Referrals: PCP,None [Primary Care Provider] - Cira Ellison MD [Physician] - 1 Week Forms: ED Department Discharge Additional Instructions: Avoid fried, fatty food. Drink plenty of fluids. Take tylenol or motrin for pain. If that does not help, try the hydrocodone. Follow up with Dr Madison. Please return if you are worse. - My Orders Last 24 Hours: My Active Orders 09/17/18 23:24 Peripheral IV Care [RC] . DIRECTED Sodium Chloride 0.9% [Saline Flush] 10 ml FLUSH ASDIRECTED PRN Peripheral IV Insertion Adult [OM.PC] Stat 09/17/18 23:25 ED Antiemetic Medication Reflex [OM.PC] Stat - Assessment/Plan Last 24 Hours: My Active Orders 09/17/18 23:24 Peripheral IV Care [RC] . DIRECTED Sodium Chloride 0.9% [Saline Flush] 10 ml FLUSH ASDIRECTED PRN Peripheral IV Insertion Adult [OM.PC] Stat 09/17/18 23:25 ED Antiemetic Medication Reflex [OM.PC] Stat
== END 2018-09-18 01:00 | disposition home or self-care (01) ==
LOC: JD.ED 22:49
DX: K80.20 Calculus of gallbladder without cholecystitis without obstruction (principal); F17.210 Nicotine dependence, cigarettes, uncomplicated; Z88.0 Allergy status to penicillin
CPT/HCPCS: 36415; 80053; 81001; 83690; 84703; 85025; 96361; 96374; 96375; 96376; 99284; J1170; J2405; J7040

== ENCOUNTER 2018-10-08 02:20 | Emergency (ER) | payer SELFPAY ==
[2018-10-08] MEDS ORDERED: Hyoscyamine 0.125 MG Tab.SL SL ONE ×2 (02:42→02:50)
[2018-10-08] MEDS ORDERED: Metoclopramide 10 MG/2 ML SDV IVPUSH ONE (02:48)
[2018-10-08] MEDS ORDERED: HYDROmorphone 1 MG/ML Syringe IVPUSH ONE ×2 (02:48→03:56)
--- NOTE | 2018-10-08 02:48 | EDM.PDOC ---
ED HPI GENERAL MEDICAL PROBLEM - General Chief Complaint: Abdominal Pain Stated Complaint: UPPER ABDOMINAL PAIN Time Seen by Provider: 10/08/18 02:41 Source of Information: Reports: Patient History Limitations: Reports: No Limitations - History of Present Illness INITIAL COMMENTS - FREE TEXT/NARRATIVE: 23-year-old female [place] ancestry presents to the ED with diffuse right upper quadrant abdominal pain rating along the costal margin to her infrascapular area in her back. She's had biliary colic attack several times over the last month. Diagnosed with multiple gallstones in her gallbladder a month ago or so. She is actually scheduled for a cholecystectomy later this morning with Dr. Hewitt. He is supposed to be her by 8:00. He is therefore nothing by mouth. She pain started about 4-5 hours ago and won't let up. Last dated 1900 hrs. last evening. He doesn't have any more [place] tablets left at home that she was using intermittently for pain relief. She is nauseated but has not vomited. Onset: Sudden Onset Date: 10/07/18 Onset Time: 20:00 Duration: Hour(s): Location: Reports: Abdomen (Right upper quadrant of the abdomen rating around the costal margin to infrascapular area back.) Quality: Reports: Other Severity: Moderate (Unable to take a full deep breath as it makes the abdominal pain worse.) Improves with: Reports: None ( He did attend) Worsens with: Reports: None Context: Denies: Activity, Exercise, Lifting, Sick Contact, Trauma, Other Associated Symptoms: Reports: Nausea/Vomiting, Shortness of Breath. Denies: Malaise, Rash, Seizure (Nausea without vomiting), Syncope Treatments [place] [employer]: Reports: Other (see below) (None.) Upper Abdomen Pain Score (Numeric/FACES): 10 - Related Data Allergies Allergy/AdvReac Type Severity Reaction Status Date / Time Penicillins Allergy Hives Verified 10/08/18 02:35 Home Meds: Home Meds Hydrocodone/Acetaminophen [Hydrocodon-Acetaminophen 5-325] 1 - 2 each PO Q6HR PRN #20 tablet 09/18/18 [Rx] Ibuprofen 800 mg PO Q8H PRN 10/07/18 [History] Past Medical History - Past Health History Medical/Surgical History: Denies Medical/Surgical History HEENT History: Reports: None Cardiovascular History: Reports: None Respiratory History: Reports: Asthma Gastrointestinal History: Reports: Cholelithiasis, Other (See Below) Other Gastrointestinal History: abdominal pain Genitourinary History: Reports: None [employer] OFFICER History: Reports: Other (See Below) Other [employer] OFFICER History: dysmenorrhea Musculoskeletal History: Reports: None Neurological History: Reports: None Psychiatric History: Reports: None Endocrine/Metabolic History: Reports: None Hematologic History: Reports: None Immunologic History: Reports: None Oncologic (Cancer) History: Reports: None Dermatologic History: Reports: None - Past Surgical History Head Surgeries/Procedures: Reports: None HEENT Surgical History: Reports: None Cardiovascular Surgical History: Reports: None GI Surgical History: Reports: None Female Surgical History: Reports: D&C Endocrine Surgical History: Reports: None Neurological Surgical History: Reports: None Musculoskeletal Surgical History: Reports: None Dermatological Surgical History: Reports: None Social & Family History - Tobacco Use Smoking Status *Q: Current Every Day Smoker Years of Tobacco use: 10 Packs/Tins Daily: 0.5 - Caffeine Use Caffeine Use: Reports: Soda - Recreational Drug Use Recreational Drug Use: No - Living Situation & Occupation Living situation: Reports: Single Occupation: Student ED ROS GENERAL - Review of Systems Review Of Systems: See Below Constitutional: Reports: Decreased Appetite. Denies: Fever, Chills, Malaise, Weakness, Fatigue, Weight Loss HEENT: Reports: No Symptoms Respiratory: Reports: Shortness of Breath Cardiovascular: Reports: No Symptoms (Can take a full deep breath as it aggravates the right upper quadrant abdominal pain) Endocrine: Reports: No Symptoms GI/Abdominal: Reports: Abdominal Pain (See history of present illness), Nausea. Denies: Vomiting : Reports: No Symptoms Musculoskeletal: Reports: No Symptoms Skin: Reports: No Symptoms Neurological: Reports: No Symptoms Psychiatric: Reports: No Symptoms Hematologic/Lymphatic: Reports: No Symptoms Immunologic: Reports: No Symptoms ED EXAM, GI/ABD - Physical Exam Exam: See Below Exam Limited By: No Limitations General Appearance: Alert, WD/WN, Moderate Distress Eyes: Bilateral: Normal Appearance (No scleral icterus) Throat/Mouth: Normal Inspection, Normal Lips, Normal Oropharynx Head: Atraumatic, Normocephalic Neck: Normal Inspection, Supple, Non-Tender, Full Range of Motion. No: Lymphadenopathy (L), Lymphadenopathy (R) Respiratory/Chest: No Respiratory Distress, Lungs Clear, Normal Breath Sounds, No Accessory Muscle Use, Chest Non-Tender Cardiovascular: Normal Peripheral Pulses, Regular Rate, Rhythm, No Edema, No Gallop, No Murmur, No Rub GI/Abdominal Exam: No Organomegaly (Bowel sounds are decreased from normal.), Guarding, Tender (Tender right upper quadrant abdomen with a positive Caldera sign.), Abnormal Bowel Sounds. No: Normal Bowel Sounds, Rigid, Rebound Back Exam: Normal Inspection, Full Range of Motion, CVA Tenderness (R) (Mild tenderness on percussion over the right costovertebral angle). No: CVA Tenderness (L) Extremities: Normal Inspection, Normal Range of Motion, Non-Tender, No Pedal Edema Neurological: Alert, Oriented, CN II-XII Intact, Normal Cognition, Normal Gait Psychiatric: Normal Affect, Normal Mood Skin Exam: Warm, Dry, Intact, Normal Color, No Rash Course - Vital Signs Last Recorded V/S: Last Vital Signs Temp 36.6 C 10/08/18 02:32 Pulse 61 10/08/18 02:32 Resp 18 10/08/18 02:32 BP 116/88 10/08/18 02:32 Pulse Ox 99 10/08/18 02:32 - Orders/Labs/Meds Orders: Active Orders 24 hr Category Date Time Status Dextrose 5%-0.9% NaCl [Dextrose 5%-Normal Saline] 1,000 Med 10/08/18 03:00 Active ml IV ASDIRECTED Medication Orders Dextrose/Sodium Chloride (Dextrose 5%-Normal Saline) 1,000 mls @ 150 mls/hr IV ASDIRECTED NINA Last Admin: 10/08/18 03:02 Dose: 150 mls/hr Labs: Laboratory Tests 10/08/18 10/08/18 Range/Units 02:57 02:57 WBC 5.72 (3.98-10.04) K/mm3 RBC 4.54 (3.98-5.22) M/mm3 Hgb 10.7 L (11.2-15.7) gm/L Hct 34.9 (34.1-44.9) % MCV 76.9 L (79.4-94.8) fl MCH 23.6 L (25.6-32.2) pg MCHC 30.7 L (32.2-35.5) g/dl RDW Std Deviation 40.7 (36.4-46.3) fL Plt Count 320 (182-369) K/mm3 MPV 10.0 (9.4-12.3) fl Neutrophils % (Manual) 39 L (40-60) % Band Neutrophils % 0 (0-10) % Lymphocytes % (Manual) 51 H (20-40) % Atypical Lymphs % 0 % Monocytes % (Manual) 7 (2-10) % Eosinophils % (Manual) 3 (0.7-5.8) % Basophils % (Manual) 0 L (0.1-1.2) Platelet Estimate Adequate Plt Morphology Comment Normal Hypochromasia 1+ slight Microcytosis 1+ slight RBC Morph Comment Not Reportable Sodium 139 (136-145) mEq/L Potassium 3.7 (3.5-5.1) mEq/L Chloride 106 (98-107) mEq/L Carbon Dioxide 24 (21-32) mEq/L Anion Gap 12.7 (5-15) BUN 18 (7-18) mg/dL Creatinine 0.8 (0.55-1.02) mg/dL Est Cr Clr Drug Dosing 98.41 mL/min Estimated GFR (MDRD) > 60 (>60) mL/min BUN/Creatinine Ratio 22.5 H (14-18) Glucose 99 (74-106) mg/dL Calcium 8.5 (8.5-10.1) mg/dL Total Bilirubin 0.2 (0.2-1.0) mg/dL GGT 16 (5-55) U/L AST 17 (15-37) U/L ALT 34 (14-59) U/L Alkaline Phosphatase 70 (46-116) U/L Total Protein 7.2 (6.4-8.2) g/dl Albumin 3.4 (3.4-5.0) g/dl Globulin 3.8 gm/dL Albumin/Globulin Ratio 0.9 L (1-2) Lipase 168 (73-393) U/L Meds: Medications Generic Name Dose Route Start Last Admin Trade Name Freq PRN Reason Stop Dose Admin Dextrose/Sodium Chloride 1,000 mls @ 150 mls/hr 10/08/18 03:00 10/08/18 03:02 Dextrose 5%-Normal Saline IV 150 mls/hr ASDIRECTED NINA Administration Discontinued Medications Generic Name Dose Route Start Last Admin Trade Name Freq PRN Reason Stop Dose Admin Hydromorphone HCl 1 mg 10/08/18 02:48 10/08/18 03:04 Dilaudid IVPUSH 10/08/18 02:49 1 mg ONETIME ONE Administration Hydromorphone HCl 1 mg 10/08/18 03:56 10/08/18 04:00 Dilaudid IVPUSH 10/08/18 03:57 1 mg ONETIME ONE Administration Hyoscyamine 0.125 mg 10/08/18 02:42 10/08/18 02:50 Hyomax-Sl SL 10/08/18 02:43 0.125 mg ONETIME ONE Administration Hyoscyamine 0.125 mg 10/08/18 02:50 10/08/18 02:57 Hyomax-Sl SL 10/08/18 02:51 0.125 mg ONETIME ONE Administration Metoclopramide HCl 7.5 mg 10/08/18 02:48 10/08/18 03:03 Reglan IVPUSH 10/08/18 02:49 7.5 mg ONETIME ONE Administration - Radiology Interpretation Free Text/Narrative:: 23-year-old female presents to the ED with acute biliary colic. She's been having recurrent bouts of belly colic for the last month or more. Confirmed multiple gallstones by ultrasound. She is in fact scheduled for cholecystectomy later this morning with Dr. Hewitt. She is to be at the hospital by 0800 hrs. this morning. Last meal was at 1900 hrs. last evening. Pain started about an hour and a half after this. Radiate around the right costal margin to her infrascapular area on the right side. Exam reveals decreased bowel sounds from the norm. She's been has marked tenderness with mild guarding right upper quadrant of the abdomen with a positive Caldera's sign. Plan left second 0.125 mg sublingual 2 tablets 8 minutes apart. IV will be started D5 normal saline at 125 mils per hour. She'll be given Dilaudid 1 mg IV with Reglan 7.5 mg IV for pain relief. I will allow her to stay in the ED until time of surgery as there is no since trying to send her home. Routine labs will be collected to make sure there is no stone passage into the common bile duct. - Re-Assessments/Exams Free Text/Narrative Re-Assessment/Exam: 10/08/18 03:56 patient reports pain is now coming back. It was pretty well gone for a period of time. He Dilaudid 1 mg IV.Labs reveal a normal white count at 5.7-39% neutrophils and 51% lymphocytes i.e. right shift. Hemoglobin is low at 10.7 with a hematocrit of 34.9. MCV is low at 76.9 suggesting iron deficiency. Platelet count is 320,000. Sodium 139 with a potassium of 3.7. Chloride 106 with a bicarbonate 24. And a gap is 12.7. BUNs 18 with a creatinine of 0.8. Estimated GFR is greater than 60. Glucose is 99. Calcium 8.5. Liver function is completely normal including a GGT of 16. Prostates is 70. Total protein is 7.2 lipase is normal at 168. Therefore there are no signs of biliary tree obstruction at this time 10/08/18 06:40: Patient reports that her pain is completely gone. Will be to discharge her about 0745 hrs. this morning where she will go to the main entrance for registration for outpatient surgery. IV will be left in at this time until she gets to the OR. Dr. Hewitt was apprised of her presence in the ED. Departure - Departure Time of Disposition: 07:45 Disposition: DC/Tfer to [facility] Condition: Fair Clinical Impression: Recurrent biliary colic Cholelithiasis Qualifiers: Cholelithiasis location: gallbladder Cholecystitis presence: without cholecystitis Biliary obstruction: without biliary obstruction Qualified Code(s) : K80.20 - Calculus of gallbladder without cholecystitis without obstruction - Discharge Information *PRESCRIPTION DRUG MONITORING PROGRAM REVIEWED*: Not Applicable *COPY OF PRESCRIPTION DRUG MONITORING REPORT IN PATIENT BRIANNA: Not Applicable Instructions: Cholelithiasis Referrals: PCP,None [Primary Care Provider] - Forms: ED Department Discharge Additional Instructions: You were remain in the ED overnight for control of recurrent gallbladder attack. Labs do not reveal any signs of biliary tree obstruction. You are to be discharged from the ED and then go to the lockstitch front edge tape sewer at the hospital to register for surgery is planned at 0800 hrs. IV will be left in so that it does not have to be restarted in preparation for surgery this morning. You must remain nothing by mouth with nothing to eat or drink prior to planned surgery. - My Orders Last 24 Hours: My Active Orders 10/08/18 03:00 Dextrose 5%-0.9% NaCl [Dextrose 5%-Normal Saline] 1,000 ml IV ASDIRECTED - Assessment/Plan Last 24 Hours: My Active Orders 10/08/18 03:00 Dextrose 5%-0.9% NaCl [Dextrose 5%-Normal Saline] 1,000 ml IV ASDIRECTED
[2018-10-08] MEDS ORDERED: Dextrose 5%-0.9% NaCl 1,000 ML IV SCH (03:00)
== END 2018-10-08 07:36 | disposition critical access hospital (66) ==
LOC: JD.ED 02:20
DX: K80.70 Calculus of gallbladder and bile duct without cholecystitis without obstruction (principal); F17.210 Nicotine dependence, cigarettes, uncomplicated; Z88.0 Allergy status to penicillin
CPT/HCPCS: 36415; 80053; 82977; 83690; 85007; 85027; 96361; 96374; 96375; 96376; 99284; A9270; J1170; J2765; J7042; 99285

== ENCOUNTER 2018-10-08 07:41 | Day surgery (SDC) | payer OTHER ==
[~2018-10-08 07:41] MED LIST: Lactated Ringers 1,000 ML IV SCH; Lidocaine 1%/Sod Bicarbonate in NS 8.4% 1 ML Syringe IDERM PRN; Sodium Chloride 0.9% 10 ML Syringe FLUSH PRN
--- NOTE | 2018-10-08 08:29 | PCM.PREANE ---
Preanesthetic Assessment - Anesthesia/Transfusion/Family Hx Anesthesia History: No Prior Anesthesia Family History of Anesthesia Reaction: No Transfusion History: No Prior Transfusion(s) - Review of Systems General: Fatigue, Malaise Pulmonary: Shortness of Breath Cardiovascular: Dyspnea on Exertion Gastrointestinal: Abdominal Pain, Nausea Neurological: Numbness ("at times") Other: Reports: Easy Bruising - Physical Assessment NPO Status Date: 10/07/18 NPO Status Time: 19:00 Pulse: 72 O2 Sat by Pulse Oximetry: 100 Respiratory Rate: 16 Blood Pressure: 110/61 Temperature: 36.3 C Vital Signs: Last Vital Signs Temp 36.3 C 10/08/18 08:00 Pulse 72 10/08/18 08:00 Resp 16 10/08/18 08:00 BP 110/61 10/08/18 08:00 Pulse Ox 100 10/08/18 08:00 Height: 1.63 m Weight: 82.554 kg ASA Class: 2 Mental Status: Alert & Oriented x3 Airway Class: Mallampati = 1 Dentition: Reports: Normal Dentition Thyro-Mental Finger Breadths: 3 Mouth Opening Finger Breadths: 3 ROM/Head Extension: Full Lungs: Clear to Auscultation, Normal Respiratory Effort Cardiovascular: Regular Rate, Regular Rhythm - Lab Values: Laboratory Last Values Urine HCG, Qual Negative (NEGATIVE) 10/08/18 07:54 - Allergies Allergies/Adverse Reactions: Allergies Allergy/AdvReac Type Severity Reaction Status Date / Time Penicillins Allergy Hives Verified 10/08/18 02:35 - Blood Blood Available: No Product(s) Available: None - Anesthesia Plan Pre-Op Medication Ordered: None - Acknowledgements Anesthesia Type Planned: General Anesthesia Pt an Appropriate Candidate for the Planned Anesthesia: Yes Alternatives and Risks of Anesthesia Discussed w Pt/Guardian: Yes Pt/Guardian Understands and Agrees with Anesthesia Plan: Yes PreAnesthesia Questionnaire - Past Health History Medical/Surgical History: Denies Medical/Surgical History HEENT History: Reports: None Cardiovascular History: Reports: None Respiratory History: Reports: Asthma Gastrointestinal History: Reports: Cholelithiasis, Other (See Below) Other Gastrointestinal History: abdominal pain Genitourinary History: Reports: None HOUSING INSTALLER History: Reports: Other (See Below) Other OB/BYN History: dysmenorrhea Musculoskeletal History: Reports: None Neurological History: Reports: None Psychiatric History: Reports: None Endocrine/Metabolic History: Reports: None Hematologic History: Reports: None Immunologic History: Reports: None Oncologic (Cancer) History: Reports: None Dermatologic History: Reports: None - Past Surgical History Head Surgeries/Procedures: Reports: None HEENT Surgical History: Reports: None Cardiovascular Surgical History: Reports: None GI Surgical History: Reports: None Female Surgical History: Reports: D&C Endocrine Surgical History: Reports: None Neurological Surgical History: Reports: None Musculoskeletal Surgical History: Reports: None Dermatological Surgical History: Reports: None - SUBSTANCE USE Smoking Status *Q: Current Some Day Smoker Tobacco Use Within Last Twelve Months: Cigarettes Second Hand Smoke Exposure: Yes Days Per Week of Alcohol Use: 0 Number of Drinks Per Day: 0 Total Drinks Per Week: 0 Recreational Drug Use History: No - HOME MEDS Home Medications: Home Meds Hydrocodone/Acetaminophen [Hydrocodon-Acetaminophen 5-325] 1 - 2 each PO Q6HR PRN #20 tablet 09/18/18 [Rx] Ibuprofen 800 mg PO Q8H PRN 10/07/18 [History] - CURRENT (IN HOUSE) MEDS Current Meds: Current Medications Lactated Ringer's (Ringers, Lactated) 1,000 mls @ 125 mls/hr IV ASDIRECTED NINA Stop: 10/08/18 23:00 Last Admin: 10/08/18 08:05 Dose: 125 mls/hr Lidocaine/Sodium Bicarbonate (Buffered Lidocaine 1% In Ns 8.4%) 0.25 ml IDERM ONETIME PRN PRN Reason: Prior to IV Start Stop: 10/08/18 18:00 Sodium Chloride (Saline Flush) 10 ml FLUSH ASDIRECTED PRN PRN Reason: Keep Vein Open Stop: 10/08/18 18:00
[2018-10-08] MEDS ORDERED: Propofol 200 MG/20 ML SDV ONE (08:41)
[2018-10-08] MEDS ORDERED: Ondansetron 4 MG/2 ML SDV ONE (08:41)
[2018-10-08] MEDS ORDERED: Midazolam 1 MG/ML 2 ML SDV ONE (08:41)
[2018-10-08] MEDS ORDERED: fentaNYL 250 MCG/5 ML SDV ONE (08:41)
[2018-10-08] MEDS ORDERED: Rocuronium 50 MG/5 ML Vial ONE (08:41)
[2018-10-08] MEDS ORDERED: Lidocaine 1% 4 ML ONE (08:42)
[2018-10-08] MEDS: Bupivacaine 0.5% 30 ML SDV ONE ×2 (09:54→10:09)
[2018-10-08] MEDS ORDERED: Lactated Ringers 1,000 ML ONE (10:32)
[2018-10-08] MEDS ORDERED: Ketorolac 30 MG/ML SDV ONE (10:33)
[2018-10-08] MEDS ORDERED: Neostigmine Methylsulfate 1 MG/ML 5 ML Syringe ONE (10:43)
[2018-10-08] MEDS ORDERED: HYDROmorphone 0.5 MG/0.5 ML Syringe IVPUSH PRN (10:56)
[2018-10-08] MEDS ORDERED: fentaNYL 100 MCG/2 ML SDV IVPUSH PRN (10:56)
--- NOTE | 2018-10-08 10:59 | PCM.POSTAN ---
POST ANESTHESIA ASSESSMENT - MENTAL STATUS Mental Status: Alert, Oriented - VITAL SIGNS Pulse Rate: 90 SaO2: 100 Resp Rate: 10 Blood Pressure: 114/64 Temperature: 36.7 C - RESPIRATORY Respiratory Status: Respiratory Rate WNL, Airway Patent, O2 Saturation Stable - CARDIOVASCULAR CV Status: Pulse Rate WNL, Blood Pressure Stable - GASTROINTESTINAL GI Status: No Symptoms - PAIN Pain Score: 0 - POST OP HYDRATION Hydration Status: Adequate & Stable - OBSERVATIONS Free Text/Narrative:: no anesthesia complications noted
[2018-10-08] MEDS ORDERED: Ibuprofen 800 MG Tab PO ONE (12:10)
--- NOTE | 2018-10-08 17:58 | OR ---
DATE OF OPERATION: 10/08/2018 SURGEON: Harmeet Hewitt MD PREOPERATIVE DIAGNOSIS: Calculous cholecystitis. POSTOPERATIVE DIAGNOSIS: Calculous cholecystitis. OPERATION PERFORMED: Laparoscopic cholecystectomy. ANESTHESIA: General with endotracheal intubation. FINDINGS: She had an edematous gallbladder with stones. ESTIMATED BLOOD LOSS: Minimal. COMPLICATIONS: None. PATHOLOGY: Gallbladder and contents. DISPOSITION: Stable at the end of procedure. INDICATION: The patient is a 23-year-old poly-gravidous female with several episodes of biliary colic. She was found to have stones on her preop workup. She had no evidence of biliary obstruction. She was offered a laparoscopic cholecystectomy. She was fully informed of the major risks of the procedure. These include, but are not limited to perforation of the bowel, bleeding, risks of anesthesia, bleeding from the liver, injury to the common duct, retained stone, postoperative bile leak, and many others. She gave informed consent for what was done. DESCRIPTION OF PROCEDURE: The patient was brought to the operating room and placed in supine position on the operating table. She was given general anesthesia. The left arm was tucked and all pressure points were padded. The abdomen was prepped and draped in usual sterile fashion. A Veress needle insertion was undertaken in the left upper quadrant. Insufflation was undertaken to a pressure of 15 mmHg with CO2 gas. There was no evidence of restriction upon insufflation. A 5 mm optical port was passed in the right upper quadrant along the anterior axillary line. I visualized the tissue planes as the port passed into the peritoneum. There was no contact to underlying bowel. The Veress was visualized in the left upper quadrant. This was removed. There was no contact or injury to the underlying stomach. Gas was switched the existing port. Two additional 5 mm ports were passed, 1 in the midclavicular line and 1 in the epigastrium. An additional 12 mm port was passed in the epigastrium 3 fingerbreadths above the umbilicus. I visualized the gallbladder. The gallbladder had both chronic and acute adhesions consistent with acute on chronic cholecystitis. The adhesions were taken down with Bovie cautery using [place] dissector. I then was able to grasp the gallbladder and retracted cranially and then the infundibulum could be retracted laterally and medially to expose the critical view of safety. I skeletonized the cystic duct and cystic artery. These clips were passed across both structures and then transected in the usual fashion. Three clips were left on the cystic duct. At this point, the hook cautery was used to take down the embryonic attachment to the liver. The gallbladder was placed in an EndoCatch bag and kept temporarily in the peritoneum. I thoroughly irrigated the right upper quadrant. I inspected for any bleeding and there was none. The gallbladder fossa was absolutely dry. I evacuated whatever irrigant was there. I checked the clips. The clips were seen to be still in place. At this point, the gallbladder was retrieved through the 12 mm port site. A [id number] Vicryl stitch was used to obliterate the 12 mm fascial defect. After abdominal desufflation, I then reinspected the right upper quadrant for any bleeding and there was none. There was no bile staining. Finally, the ports were opened to desufflate the gas and the ports were removed. Each of the incisions was reapproximated with 4-0 Monocryl suture material. Dermabond was applied for sterile barrier. She was awakened from anesthesia and moved to Recovery in stable condition. [facility] /[id number]
== END 2018-10-08 12:45 | disposition home or self-care (01) ==
LOC: JD.SDS 07:41
PROVIDERS: ATTEND Surgery
DX: K80.10 Calculus of gallbladder with chronic cholecystitis without obstruction (principal); J45.909 Unspecified asthma, uncomplicated; F17.210 Nicotine dependence, cigarettes, uncomplicated; N94.6 Dysmenorrhea, unspecified; Z88.0 Allergy status to penicillin
CPT/HCPCS: 47562; 81025; A9270; J0694; J1885; J2001; J2250; J2405; J2704; J2710; J3010; J3490; J7120; 00790